=== PATIENT | male | born 1955 ===

== ENCOUNTER 2020-12-02 14:38 | Emergency (ER) | payer OTHER ==
[~2020-12-02] VITALS: Ht 177.8 cm; Wt 77.1 kg
[~2020-12-02 14:38] MED LIST: Norco 5-325 Ta1 EACH PO
[2020-12-02 16:02] LABS: BASOPHILS ABSOLUTE AUTO 0.06 K/mm3 (0.00-0.23); BASOPHILS PERCENT AUTO 1 % (0-2); EOSINOPHILS ABSOLUTE AUTO 0.28 K/mm3 (0.00-0.68); EOSINOPHILS PERCENT AUTO 4 % (0-6); Hemoglobin 16.1 g/dL (13.5-17.5); IMMATURE GRAN ABSOLUTE AUTO 0.04 K/mm3 (0.00-0.10); IMMATURE GRAN PERCENT AUTO 1 % (0-1); LYMPHOCYTES ABSOLUTE AUTO 2.48 K/mm3 (0.84-5.20); LYMPHOCYTES PERCENT AUTO 32 % (21-46); MONOCYTES ABSOLUTE AUTO 0.71 K/mm3 (0.16-1.47); MONOCYTES PERCENT AUTO 9 % (4-13); Mean Corpuscular HGB Conc 33.5 g/dL (31.5-36.5); Mean Corpuscular Volume 89 fL (80-100); NEUTROPHILS ABSOLUTE AUTO 4.18 K/mm3 (1.96-9.15); NEUTROPHILS PERCENT AUTO 54 % (41-73); Platelet Count 403 K/mm3 (150-400); RDW Coefficient Variation 13.2 % (11.7-14.2); RDW Standard Deviation 42.8 fL (35.1-46.3); Red Blood Cell Count 5.37 M/mm3 (4.30-5.90); White Blood Cell Count 7.75 K/mm3 (4.00-11.30)
[2020-12-02 16:19] LABS: Alanine Aminotransfer (ALT/SGP 36 U/L (12-78); Albumin, Blood 3.5 g/dL (3.4-5.0); Alk Phos 95 U/L (50-136); Anion Gap 5 mmol/L (6-16); Aspartate Aminotrans (AST/SGOT 18 U/L (12-37); Bilirubin, Total 0.2 mg/dL (0.1-1.0); Blood Urea Nitrogen 11 mg/dL (8-24); Bun/Creatinine Ratio 14.9 (12.0-20.0); CO2, Blood 26 mmol/L (21-32); Calcium, Blood 8.9 mg/dL (8.5-10.1); Chloride, Blood 110 mmol/L (98-108); Creatinine, Blood 0.74 mg/dL (0.60-1.20); Globulin, Blood 3.5 g/dL (2.2-4.0); Glomerular Filtration Rate >60 (60-); Glucose, Blood 97 mg/dL (70-99); Sodium, Blood 141 mmol/L (136-145); Troponin I <0.015 ng/mL (0.000-0.040)
== END 2020-12-02 17:35 | disposition home or self-care (01) ==
LOC: ER 14:38
PROVIDERS: Physician Assistant
DX: R42 Dizziness and giddiness (principal); F17.210 Nicotine dependence, cigarettes, uncomplicated
CPT/HCPCS: 80053; 84484; 85025; 93005; 93010; 99285-25

== ENCOUNTER 2021-01-08 08:57 | Emergency (ER) | payer OTHER ==
[~2021-01-08] VITALS: Ht 177.8 cm; Wt 77.1 kg
[2021-01-08 10:15] LABS: BASOPHILS ABSOLUTE AUTO 0.05 K/mm3 (0.00-0.23); BASOPHILS PERCENT AUTO 1 % (0-2); EOSINOPHILS ABSOLUTE AUTO 0.19 K/mm3 (0.00-0.68); EOSINOPHILS PERCENT AUTO 2 % (0-6); Hematocrit 46.9 % (37.0-53.0); Hemoglobin 15.9 g/dL (13.5-17.5); IMMATURE GRAN ABSOLUTE AUTO 0.04 K/mm3 (0.00-0.10); IMMATURE GRAN PERCENT AUTO 0 % (0-1); LYMPHOCYTES PERCENT AUTO 16 % (21-46); MONOCYTES ABSOLUTE AUTO 1.03 K/mm3 (0.16-1.47); MONOCYTES PERCENT AUTO 10 % (4-13); Mean Corpuscular HGB 30.1 pg (26.0-34.0); Mean Corpuscular HGB Conc 33.9 g/dL (31.5-36.5); Mean Corpuscular Volume 89 fL (80-100); Mean Platelet Volume 9.7 fL (9.1-12.4); NEUTROPHILS ABSOLUTE AUTO 7.38 K/mm3 (1.96-9.15); NEUTROPHILS PERCENT AUTO 71 % (41-73); Platelet Count 461 K/mm3 (150-400); RDW Coefficient Variation 13.5 % (11.7-14.2); RDW Standard Deviation 44.4 fL (35.1-46.3); Red Blood Cell Count 5.28 M/mm3 (4.30-5.90); White Blood Cell Count 10.39 K/mm3 (4.00-11.30)
[2021-01-08 10:34] LABS: Alanine Aminotransfer (ALT/SGP 31 U/L (12-78); Albumin, Blood 3.5 g/dL (3.4-5.0); Albumin/Globulin Ratio 0.9 (0.8-1.8); Alk Phos 102 U/L (50-136); Anion Gap 1 mmol/L (6-16); Aspartate Aminotrans (AST/SGOT 43 U/L (12-37); Bilirubin, Total 0.6 mg/dL (0.1-1.0); Blood Urea Nitrogen 19 mg/dL (8-24); Bun/Creatinine Ratio 26.1 (12.0-20.0); CO2, Blood 29 mmol/L (21-32); Chloride, Blood 109 mmol/L (98-108); Creatinine, Blood 0.73 mg/dL (0.60-1.20); Glomerular Filtration Rate >60 (60-); Glucose, Blood 82 mg/dL (70-99); Potassium, Blood 5.2 mmol/L (3.5-5.5); Sodium, Blood 139 mmol/L (136-145); Total Protein, Blood 7.5 g/dL (6.4-8.2)
[2021-01-08 12:18] LABS: Source, Urine Clean Catch
[2021-01-08 12:32] LABS: Bilirubin, Urine Neg (Neg); Blood, Urine 1+ (Neg); Glucose Qualitative, Urine Neg (Neg); Ketones, Urine Neg (Neg); Leukocyte Esterase, Urine Neg (Neg); Nitrite, Urine Neg (Neg); Protein, Urine Neg (Neg); Specific Gravity, Urine 1.015 (1.003-1.022); Urobilinogen, Urine NORM (Normal)
[2021-01-08] MEDS ORDERED: GABA300 PO (12:38)
[2021-01-08] MEDS ORDERED: LIDO700A20 TOP (12:38)
[2021-01-08 13:00] LABS: Appearance, Urine Clear (Clear); Color, Urine Yellow (P-Yellow)
[2021-01-08 13:02] LABS: Bacteria Not Seen /hpf; Red Blood Cells, Urine 0-2 /hpf (0-2); Squamous Epithelial Cells Not Seen /hpf (Few); White Blood Cells, Urine 0-2 /hpf (0-5)
== END 2021-01-08 13:30 | disposition home or self-care (01) ==
LOC: ER 08:57
PROVIDERS: Student in an Organized Health Care Education/Training Program
DX: K52.9 Noninfective gastroenteritis and colitis, unspecified (principal); F17.210 Nicotine dependence, cigarettes, uncomplicated
CPT/HCPCS: 36415; 74177; 80053; 81001; 83605; 83690; 85025; 96374-59; 99284-25; J2270; J7120; Q9967

== ENCOUNTER → 2021-01-28 | Outpatient (CLI) | payer OTHER ==
[~2021-01-28] MED LIST changes: +GABA300 PO; +LIDO700A20 TOP
== END | disposition home or self-care (01) ==
LOC: LAB 14:30 → LAB SHORT 14:30
DX: M25.521 Pain in right elbow (principal)
CPT/HCPCS: 87070; 87077; 87147; 87186; 87205

== ENCOUNTER 2021-01-29 12:01 | Inpatient (IN) | payer OTHER ==
[~2021-01-29] VITALS: Ht 177.8 cm; Wt 81.3 kg
[2021-01-29 13:38] LABS: BASOPHILS ABSOLUTE AUTO 0.04 K/mm3 (0.00-0.23); BASOPHILS PERCENT AUTO 0 % (0-2); EOSINOPHILS ABSOLUTE AUTO 0.15 K/mm3 (0.00-0.68); EOSINOPHILS PERCENT AUTO 1 % (0-6); Hematocrit 44.9 % (37.0-53.0); Hemoglobin 15.1 g/dL (13.5-17.5); IMMATURE GRAN ABSOLUTE AUTO 0.11 K/mm3 (0.00-0.10); IMMATURE GRAN PERCENT AUTO 1 % (0-1); LYMPHOCYTES ABSOLUTE AUTO 1.21 K/mm3 (0.84-5.20); LYMPHOCYTES PERCENT AUTO 7 % (21-46); MONOCYTES ABSOLUTE AUTO 2.43 K/mm3 (0.16-1.47); MONOCYTES PERCENT AUTO 13 % (4-13); Mean Corpuscular HGB 30.1 pg (26.0-34.0); Mean Corpuscular HGB Conc 33.6 g/dL (31.5-36.5); Mean Corpuscular Volume 89 fL (80-100); Mean Platelet Volume 9.6 fL (9.1-12.4); NEUTROPHILS ABSOLUTE AUTO 14.76 K/mm3 (1.96-9.15); NEUTROPHILS PERCENT AUTO 79 % (41-73); Platelet Count 457 K/mm3 (150-400); RDW Coefficient Variation 13.3 % (11.7-14.2); RDW Standard Deviation 43.6 fL (35.1-46.3); Red Blood Cell Count 5.02 M/mm3 (4.30-5.90)
[2021-01-29 13:56] LABS: Alanine Aminotransfer (ALT/SGP 31 U/L (12-78); Albumin, Blood 2.6 g/dL (3.4-5.0); Albumin/Globulin Ratio 0.6 (0.8-1.8); Alk Phos 117 U/L (50-136); Anion Gap 2 mmol/L (6-16); Aspartate Aminotrans (AST/SGOT 29 U/L (12-37); Bilirubin, Total 0.8 mg/dL (0.1-1.0); Blood Urea Nitrogen 14 mg/dL (8-24); Bun/Creatinine Ratio 15.7 (12.0-20.0); CO2, Blood 31 mmol/L (21-32); Calcium, Blood 8.8 mg/dL (8.5-10.1); Chloride, Blood 105 mmol/L (98-108); Creatinine, Blood 0.89 mg/dL (0.60-1.20); Globulin, Blood 4.7 g/dL (2.2-4.0); Glomerular Filtration Rate >60 (60-); Glucose, Blood 101 mg/dL (70-99); Potassium, Blood 3.7 mmol/L (3.5-5.5); Sodium, Blood 138 mmol/L (136-145); Total Protein, Blood 7.3 g/dL (6.4-8.2)
[2021-01-29 18:24] LABS: SARS-Cov-2 (COVID-19) PCR, MMC NEGATIVE (NEGATIVE)
--- NOTE | 2021-01-29 18:31 | NUR ---
SHIFT SUMMARY PATIENT ADMITTED FROM ER AT 1735. PATIENT HAD VANCO RUNNING. PATIENT SETTLED INTO ROOM. ADMIT COMPLETE. PATIENT MEDICATED FOR PAIN IN ER BEFORE ADMISSION TO FLOOR. PATIENT DENIES NAUSEA AND SHORTNESS OF BREATH. PATIENT IS INDEPENDENT IN ROOM. URINE SAMPLE COLLECTED. DINNER TRAY REQUESTED. PATIENT TO BE NPO AT MIDNIGHT. CONSULT TO DR. CAMPO CALLED IN, LEFT MESSAGE ON ANSWERING SERVICE. PATIENT IS PLEASANT AND COOPERATIVE WITH CARE.
[2021-01-29 18:56] LABS: U Amphetamine Screen DETECTED; U Barbituate Screen Not Detected; U Benzodiazapine Screen Not Detected; U Buprenorphine Screen Not Detected; U Cannabinoids Screen DETECTED; U Cocaine Screen Not Detected; U Methadone Screen Not Detected; U Methamphetamine Screen DETECTED; U Opiates Screen DETECTED; U Oxycodone Screen Not Detected; U Phencyclidine Screen Not Detected; U Propoxyphene Screen Not Detected
[2021-01-30 05:05] LABS: BASOPHILS ABSOLUTE AUTO 0.04 K/mm3 (0.00-0.23); BASOPHILS PERCENT AUTO 0 % (0-2); EOSINOPHILS ABSOLUTE AUTO 0.26 K/mm3 (0.00-0.68); EOSINOPHILS PERCENT AUTO 2 % (0-6); Hematocrit 36.4 % (37.0-53.0); Hemoglobin 12.5 g/dL (13.5-17.5); IMMATURE GRAN ABSOLUTE AUTO 0.07 K/mm3 (0.00-0.10); IMMATURE GRAN PERCENT AUTO 1 % (0-1); LYMPHOCYTES ABSOLUTE AUTO 1.66 K/mm3 (0.84-5.20); LYMPHOCYTES PERCENT AUTO 11 % (21-46); MONOCYTES ABSOLUTE AUTO 1.92 K/mm3 (0.16-1.47); MONOCYTES PERCENT AUTO 13 % (4-13); Mean Corpuscular HGB 30.7 pg (26.0-34.0); Mean Corpuscular HGB Conc 34.3 g/dL (31.5-36.5); Mean Corpuscular Volume 89 fL (80-100); Mean Platelet Volume 9.7 fL (9.1-12.4); NEUTROPHILS ABSOLUTE AUTO 10.55 K/mm3 (1.96-9.15); NEUTROPHILS PERCENT AUTO 73 % (41-73); Platelet Count 401 K/mm3 (150-400); RDW Coefficient Variation 13.2 % (11.7-14.2); RDW Standard Deviation 43.4 fL (35.1-46.3); Red Blood Cell Count 4.07 M/mm3 (4.30-5.90)
[2021-01-30 05:44] LABS: Alanine Aminotransfer (ALT/SGP 23 U/L (12-78); Albumin, Blood 2.1 g/dL (3.4-5.0); Albumin/Globulin Ratio 0.6 (0.8-1.8); Alk Phos 95 U/L (50-136); Anion Gap 4 mmol/L (6-16); Aspartate Aminotrans (AST/SGOT 20 U/L (12-37); Bilirubin, Total 0.5 mg/dL (0.1-1.0); Blood Urea Nitrogen 14 mg/dL (8-24); Bun/Creatinine Ratio 18.3 (12.0-20.0); CO2, Blood 27 mmol/L (21-32); Calcium, Blood 8.4 mg/dL (8.5-10.1); Chloride, Blood 105 mmol/L (98-108); Creatinine, Blood 0.76 mg/dL (0.60-1.20); Globulin, Blood 3.7 g/dL (2.2-4.0); Glomerular Filtration Rate >60 (60-); Glucose, Blood 95 mg/dL (70-99); Magnesium, Blood 2.2 mg/dL (1.6-2.4); Potassium, Blood 3.3 mmol/L (3.5-5.5); Sodium, Blood 136 mmol/L (136-145); Total Protein, Blood 5.8 g/dL (6.4-8.2)
--- NOTE | 2021-01-30 06:45 | NUR ---
PATIENT IS AWAKE LYING IN BED. CHANGED PATIENT'S DRESSING TO R ELBOW, KERLIX AND GAUZE, CLEANSED W NS. NO PAIN EXPRESSED AT THIS TIME. LARGE BROWN/YELLOW DRAINAGE FROM DRESSING CHANGE. NO ACUTE CHANGES OVERNIGHT. BED IN LOW POSITION AND CALL LIGHT WITHIN REACH.
--- NOTE | 2021-01-30 13:57 | NUR ---
1345 ASSUMED CARE. PT IS TEARFUL . DENIES PAIN OR NAUSEA STATES HE DOES NOT KNOW WHY HE IS UPSET. RIGHT ARM ELEVATED ON PILLOW WIGGLES FINGERS CAP REFILL WNL . OFFERS NO COMPLAINT
--- NOTE | 2021-01-30 16:11 | NUR ---
SHIFT SUMMARY PATIENT MEDICATED FOR PAIN X1. PATIENT DENIES NAUSEA AND SHORTNESS OF BREATH. PATIENT SHOWERED THIS MORNING FOR PROCEDURE. REPLACED DRESSING. PATIENT HAS BEEN NPO SINCE MIDNIGHT FOR PROCEDURE. PATIENT WAS TAKEN AT 1100 FOR PROCEDURE. PATIENT RETURNED TO FLOOR AT 1430. THERE IS A NEW DRESSING, CLEAN AND INTACT. PATIENT REPORTS NO PAIN. VITAL SIGNS STABLE. PATIENT ON REGULAR DIET NOW, AND EATING AND DRINKING WELL. PATIENT IS INDEPENDENT TO BATHROOM. PATIENT IS PLEASANT AND COOPERATIVE WITH CARE.
[2021-01-30 16:41] LABS: Anion Gap 5 mmol/L (6-16); Blood Urea Nitrogen 12 mg/dL (8-24); CO2, Blood 24 mmol/L (21-32); Calcium, Blood 8.5 mg/dL (8.5-10.1); Chloride, Blood 106 mmol/L (98-108); Creatinine, Blood 0.67 mg/dL (0.60-1.20); Glomerular Filtration Rate >60 (60-); Glucose, Blood 100 mg/dL (70-99); Potassium, Blood 4.1 mmol/L (3.5-5.5); Sodium, Blood 135 mmol/L (136-145)
[2021-01-31 04:30] LABS: BASOPHILS ABSOLUTE AUTO 0.01 K/mm3 (0.00-0.23); BASOPHILS PERCENT AUTO 0 % (0-2); EOSINOPHILS PERCENT AUTO 0 % (0-6); Hematocrit 36.1 % (37.0-53.0); Hemoglobin 12.2 g/dL (13.5-17.5); IMMATURE GRAN ABSOLUTE AUTO 0.08 K/mm3 (0.00-0.10); IMMATURE GRAN PERCENT AUTO 1 % (0-1); LYMPHOCYTES ABSOLUTE AUTO 0.81 K/mm3 (0.84-5.20); LYMPHOCYTES PERCENT AUTO 6 % (21-46); MONOCYTES ABSOLUTE AUTO 1.36 K/mm3 (0.16-1.47); MONOCYTES PERCENT AUTO 10 % (4-13); Mean Corpuscular HGB Conc 33.8 g/dL (31.5-36.5); Mean Corpuscular Volume 89 fL (80-100); Mean Platelet Volume 9.3 fL (9.1-12.4); NEUTROPHILS ABSOLUTE AUTO 11.45 K/mm3 (1.96-9.15); NEUTROPHILS PERCENT AUTO 84 % (41-73); Platelet Count 455 K/mm3 (150-400); RDW Coefficient Variation 12.8 % (11.7-14.2); RDW Standard Deviation 42.2 fL (35.1-46.3); Red Blood Cell Count 4.06 M/mm3 (4.30-5.90); White Blood Cell Count 13.71 K/mm3 (4.00-11.30)
[2021-01-31 04:47] LABS: Vancomycin, Trough 7.1 ug/mL (5.0-10.0)
[2021-01-31 04:50] LABS: Anion Gap 4 mmol/L (6-16); Blood Urea Nitrogen 13 mg/dL (8-24); Bun/Creatinine Ratio 21.6 (12.0-20.0); CO2, Blood 27 mmol/L (21-32); Calcium, Blood 8.7 mg/dL (8.5-10.1); Chloride, Blood 107 mmol/L (98-108); Glomerular Filtration Rate >60 (60-); Glucose, Blood 145 mg/dL (70-99); Sodium, Blood 138 mmol/L (136-145)
--- NOTE | 2021-01-31 06:42 | NUR ---
SHIFT SUMMARY PT A&OX4. INDEPENDENT IN ROOM. SCHEDULED ABX FOR OSTEOMYELITIS ADMINISTERED PER EMAR.PT HAS IV ON LEFT AC. ADLS PROVIDED, SAFETY MEASURES IN PLACE. WILL CONTINUE TO MONITOR.
--- NOTE | 2021-01-31 18:25 | NUR ---
SHIFT SUMMARY PT INDEPENDENT IN TO BATHROOM. DRESSING CHANGED TO R ELBOW WITH MODERATE AMOUNT OF SEROSANGUINESS DRAINAGE. HAS HAD BREAKTHROUGH DRAINAGE SO DRESSING REINFORCED. NO FEVERS TODAY. EATING WELL.
[2021-02-01 05:17] LABS: BASOPHILS ABSOLUTE AUTO 0.06 K/mm3 (0.00-0.23); BASOPHILS PERCENT AUTO 1 % (0-2); EOSINOPHILS ABSOLUTE AUTO 0.16 K/mm3 (0.00-0.68); EOSINOPHILS PERCENT AUTO 1 % (0-6); Hematocrit 33.8 % (37.0-53.0); Hemoglobin 11.1 g/dL (13.5-17.5); IMMATURE GRAN PERCENT AUTO 1 % (0-1); LYMPHOCYTES ABSOLUTE AUTO 2.72 K/mm3 (0.84-5.20); LYMPHOCYTES PERCENT AUTO 23 % (21-46); MONOCYTES ABSOLUTE AUTO 1.36 K/mm3 (0.16-1.47); MONOCYTES PERCENT AUTO 11 % (4-13); Mean Corpuscular HGB 29.8 pg (26.0-34.0); Mean Corpuscular HGB Conc 32.8 g/dL (31.5-36.5); Mean Corpuscular Volume 91 fL (80-100); Mean Platelet Volume 9.8 fL (9.1-12.4); NEUTROPHILS ABSOLUTE AUTO 7.64 K/mm3 (1.96-9.15); NEUTROPHILS PERCENT AUTO 64 % (41-73); Platelet Count 495 K/mm3 (150-400); RDW Coefficient Variation 13.2 % (11.7-14.2); RDW Standard Deviation 43.8 fL (35.1-46.3); Red Blood Cell Count 3.73 M/mm3 (4.30-5.90); White Blood Cell Count 12.04 K/mm3 (4.00-11.30)
[2021-02-01 05:52] LABS: Vancomycin, Trough 16.2 ug/mL (5.0-10.0)
[2021-02-01 06:01] LABS: Anion Gap 6 mmol/L (6-16); Blood Urea Nitrogen 15 mg/dL (8-24); Bun/Creatinine Ratio 22.4 (12.0-20.0); CO2, Blood 26 mmol/L (21-32); Calcium, Blood 8.4 mg/dL (8.5-10.1); Chloride, Blood 109 mmol/L (98-108); Creatinine, Blood 0.67 mg/dL (0.60-1.20); Glomerular Filtration Rate >60 (60-); Glucose, Blood 91 mg/dL (70-99); Potassium, Blood 3.8 mmol/L (3.5-5.5); Sodium, Blood 141 mmol/L (136-145)
--- NOTE | 2021-02-01 06:25 | NUR ---
SHIFT SUMMARY PT IS AA&OX4, RR EVEN AND UNLABORED. PT NPO AFTER MIDNIGHT DUE TO UPCOMING IRRIGATION AND DEBRIDEMENT OF LEFT ELBOW OSTEOMYELITIS THIS AM. IV ABX ADMINISTERED PER EMAR. PT C/0 PAIN IN LEFT ARM, PRN PAIN MED ADMINISTERED WITH GOOD EFFECT. SAFETY MEASURES IN PLACE. WILL CONTINUE TO MONITOR.
--- NOTE | 2021-02-01 09:57 | NUR ---
DRESSING CHANGE DONE ON RIGHT ELBOW WOUND. OLD DRESSING FALLING OFF WAS REMOVED AND REPLACED WITH XEROFORM, ABD, KERLIX, AND SECURED WITH [place] TAPE.
--- NOTE | 2021-02-01 18:03 | NUR ---
PT DRESSING ON RIGHT ELBOW WAS CHANGED THIS AM DUE TO DRESSING SLIDING DOWN ELBOW AND EXCESSIVE DRAINAGE. PT SHOWERED THIS AM BEFORE GOING TO SURGERY. TOLERATED WELL. PT WENT TO SURGERY FOR I AND D AND WOUND VAC PLACEMENT ON RIGHT ELBOW. UPON RETURN FROM SURGERY, PT AMBULATED TO RESTROOM INDEPENDENTLY. PT IS NOW SITTING AT EDGE OF BED EATING DINNER.
--- NOTE | 2021-02-02 04:30 | NUR ---
SHIFT SUMMARY PT AA&OX3. ABLE TO MAKE NEEDS KNOWN. DENIES PAIN OR DISCOMFORT. PT HAS A WOUND VAC DRAINING FREELY. MEDS ADMINISTERED PER EMAR. ADLS PROVIDED. SAFETY MEASURES IN PLACE. WILL CONTINUE TO MONITOR.
[2021-02-02 04:46] LABS: BASOPHILS ABSOLUTE AUTO 0.03 K/mm3 (0.00-0.23); BASOPHILS PERCENT AUTO 0 % (0-2); EOSINOPHILS PERCENT AUTO 0 % (0-6); Hematocrit 35.3 % (37.0-53.0); IMMATURE GRAN ABSOLUTE AUTO 0.13 K/mm3 (0.00-0.10); IMMATURE GRAN PERCENT AUTO 1 % (0-1); LYMPHOCYTES ABSOLUTE AUTO 0.79 K/mm3 (0.84-5.20); LYMPHOCYTES PERCENT AUTO 6 % (21-46); MONOCYTES ABSOLUTE AUTO 0.86 K/mm3 (0.16-1.47); MONOCYTES PERCENT AUTO 6 % (4-13); Mean Corpuscular HGB 30.4 pg (26.0-34.0); Mean Corpuscular Volume 89 fL (80-100); Mean Platelet Volume 9.3 fL (9.1-12.4); NEUTROPHILS PERCENT AUTO 87 % (41-73); Platelet Count 532 K/mm3 (150-400); RDW Coefficient Variation 12.7 % (11.7-14.2); RDW Standard Deviation 42.2 fL (35.1-46.3); Red Blood Cell Count 3.95 M/mm3 (4.30-5.90); White Blood Cell Count 14.41 K/mm3 (4.00-11.30)
[2021-02-02 04:59] LABS: Anion Gap 4 mmol/L (6-16); Blood Urea Nitrogen 16 mg/dL (8-24); Bun/Creatinine Ratio 22.5 (12.0-20.0); CO2, Blood 27 mmol/L (21-32); Calcium, Blood 8.4 mg/dL (8.5-10.1); Chloride, Blood 106 mmol/L (98-108); Creatinine, Blood 0.71 mg/dL (0.60-1.20); Glomerular Filtration Rate >60 (60-); Glucose, Blood 145 mg/dL (70-99); Potassium, Blood 4.4 mmol/L (3.5-5.5); Sodium, Blood 137 mmol/L (136-145)
[2021-02-02 05:26] LABS: Vancomycin, Trough 21.9 ug/mL (5.0-10.0)
[2021-02-02 17:13] LABS: C-REACTIVE PROTEIN, EXT RANGE 1.88 mg/dL (0.000-0.300)
--- NOTE | 2021-02-02 18:37 | NUR ---
PATIENT IS ALERT AND ORIENTED AND COOPERATIVE WITH CARE. MEDICATED FOR RIGHT ELBOW PAIN PER EMAR. DR. CAMPO CONSULTED ON THE PATIENT'S CASE TODAY. WORKED WITH PT THIS AFTERNOON. WILL CONTINUE TO MONITOR
--- NOTE | 2021-02-03 04:32 | NUR ---
SHIFT SUMMARY PT IS A&OX3. NO ACUTE CHANGES ON THIS SHIFT. C/O PAIN ON RT ELBOW. PRN PAIN MEDS ADMINISTERED WITH GOOD EFFECTS. WOUND VAC IS DRAINING WELL. ADLS PROVIDED. SAFETY MEASURES IN PLACE. WILL CONTINUE TO MONITOR.
[2021-02-03 04:54] LABS: BASOPHILS ABSOLUTE AUTO 0.09 K/mm3 (0.00-0.23); BASOPHILS PERCENT AUTO 1 % (0-2); EOSINOPHILS ABSOLUTE AUTO 0.15 K/mm3 (0.00-0.68); EOSINOPHILS PERCENT AUTO 1 % (0-6); Hematocrit 36.5 % (37.0-53.0); Hemoglobin 12.2 g/dL (13.5-17.5); IMMATURE GRAN ABSOLUTE AUTO 0.36 K/mm3 (0.00-0.10); IMMATURE GRAN PERCENT AUTO 2 % (0-1); LYMPHOCYTES ABSOLUTE AUTO 3.64 K/mm3 (0.84-5.20); LYMPHOCYTES PERCENT AUTO 20 % (21-46); MONOCYTES ABSOLUTE AUTO 1.97 K/mm3 (0.16-1.47); MONOCYTES PERCENT AUTO 11 % (4-13); Mean Corpuscular HGB 29.7 pg (26.0-34.0); Mean Corpuscular HGB Conc 33.4 g/dL (31.5-36.5); Mean Corpuscular Volume 89 fL (80-100); Mean Platelet Volume 9.1 fL (9.1-12.4); NEUTROPHILS ABSOLUTE AUTO 12.41 K/mm3 (1.96-9.15); NEUTROPHILS PERCENT AUTO 67 % (41-73); Platelet Count 610 K/mm3 (150-400); RDW Coefficient Variation 13.1 % (11.7-14.2); RDW Standard Deviation 42.5 fL (35.1-46.3); Red Blood Cell Count 4.11 M/mm3 (4.30-5.90); White Blood Cell Count 18.62 K/mm3 (4.00-11.30)
[2021-02-03 05:13] LABS: Anion Gap 2 mmol/L (6-16); Blood Urea Nitrogen 16 mg/dL (8-24); Bun/Creatinine Ratio 21.6 (12.0-20.0); CO2, Blood 31 mmol/L (21-32); Calcium, Blood 8.5 mg/dL (8.5-10.1); Chloride, Blood 107 mmol/L (98-108); Creatinine, Blood 0.74 mg/dL (0.60-1.20); Glomerular Filtration Rate >60 (60-); Glucose, Blood 92 mg/dL (70-99); Potassium, Blood 3.9 mmol/L (3.5-5.5); Sodium, Blood 140 mmol/L (136-145)
[2021-02-03 08:09] LABS: HIV SCREEN 4TH GENERATION WRFX Non Reactive (Non Reactive)
--- NOTE | 2021-02-03 17:02 | NUR ---
PATIENT IS ALERT AND ORIENTED AND COOPERATIVE WITH CARE. C/O RIGHT ELBOW PAIN, MEDICATED PER EMAR. PLAN IS FOR A PICC LINE TO BE PLACED TOMORROW BY AN ANGELINA RN. PATIENT IS EAGER TO GO HOME. HOME WOUND CARE SUPPLIES ARE IN THE PATIENT'S ROOM. WILL CONTINUE TO MONITOR
[2021-02-04 04:55] LABS: BASOPHILS PERCENT AUTO 1 % (0-2); EOSINOPHILS ABSOLUTE AUTO 0.33 K/mm3 (0.00-0.68); EOSINOPHILS PERCENT AUTO 2 % (0-6); Hematocrit 38.6 % (37.0-53.0); IMMATURE GRAN ABSOLUTE AUTO 1.08 K/mm3 (0.00-0.10); IMMATURE GRAN PERCENT AUTO 6 % (0-1); LYMPHOCYTES ABSOLUTE AUTO 3.89 K/mm3 (0.84-5.20); LYMPHOCYTES PERCENT AUTO 23 % (21-46); MONOCYTES ABSOLUTE AUTO 1.62 K/mm3 (0.16-1.47); MONOCYTES PERCENT AUTO 10 % (4-13); Mean Corpuscular HGB 30.3 pg (26.0-34.0); Mean Corpuscular HGB Conc 33.7 g/dL (31.5-36.5); Mean Corpuscular Volume 90 fL (80-100); Mean Platelet Volume 9.3 fL (9.1-12.4); NEUTROPHILS ABSOLUTE AUTO 9.81 K/mm3 (1.96-9.15); NEUTROPHILS PERCENT AUTO 58 % (41-73); Platelet Count 649 K/mm3 (150-400); RDW Coefficient Variation 13.2 % (11.7-14.2); RDW Standard Deviation 43.6 fL (35.1-46.3); Red Blood Cell Count 4.29 M/mm3 (4.30-5.90); White Blood Cell Count 16.93 K/mm3 (4.00-11.30)
[2021-02-04 05:09] LABS: Anion Gap 3 mmol/L (6-16); Blood Urea Nitrogen 21 mg/dL (8-24); Bun/Creatinine Ratio 27.5 (12.0-20.0); CO2, Blood 31 mmol/L (21-32); Calcium, Blood 8.9 mg/dL (8.5-10.1); Chloride, Blood 104 mmol/L (98-108); Creatinine, Blood 0.76 mg/dL (0.60-1.20); Glomerular Filtration Rate >60 (60-); Glucose, Blood 99 mg/dL (70-99); Potassium, Blood 4.2 mmol/L (3.5-5.5); Sodium, Blood 138 mmol/L (136-145)
[2021-02-04 05:11] LABS: BAND PERCENT MAN 2 % (0-8); BASOPHILS PERCENT MAN 0 % (0-2); EOSINOPHILS ABSOLUTE MAN 0.33 K/mm3 (0.00-0.68); EOSINOPHILS PERCENT MAN 2 % (0-6); LYMPHOCYTES ABSOLUTE MAN 4.06 K/mm3 (0.84-5.20); LYMPHOCYTES PERCENT MAN 24 % (21-46); METAMYELOCYTE ABSOLUTE MAN 0.16 K/mm3 (0.00-0.00); METAMYELOCYTE PERCENT MAN 1 % (0-0); MONOCYTES ABSOLUTE MAN 1.86 K/mm3 (0.16-1.47); MONOCYTES PERCENT MAN 11 % (4-13); MYELOCYTE ABSOLUTE MAN 0.16 K/mm3 (0.00-0.00); MYELOCYTE PERCENT MAN 1 % (0-0); NEUTROPHILS ABSOLUTE MAN 10.32 K/mm3 (1.96-9.15); SEG NEUTROPHILS PERCENT MAN 59 % (41-73); TOTAL CELLS COUNTED 100
--- NOTE | 2021-02-04 05:13 | NUR ---
SHIFT SUMMARY ADMITTED FOR ACUTE OSTEOMYELITIS. FULL CODE. ISO FOR MRSA IN WOUND. RT ELBOW HAD I&D'S X2, WOUND VAC IN PLACE. PICC LINE TO BE PLACED TODAY FOR 6 WEEKS ANTIB RX. HE WILL DC HOME. IV ANTIB RX ARE SCHEDULED. HX OF DRUG ABUSE.
[2021-02-04] MEDS ORDERED: JUVEN PACKET1 EAC3 PO (13:40)
[2021-02-04] MEDS ORDERED: NICODERM CQ1 EA11 TOP (13:41)
[2021-02-04] MEDS ORDERED: Norco 5-325 Ta1 EACH PO (13:41)
[2021-02-04] MEDS ORDERED: LACT PO (13:41)
[2021-02-04] MEDS ORDERED: CUBICIN RF500 M1 IV (13:43)
--- NOTE | 2021-02-04 18:18 | NUR ---
PATIENT D/C'D TO HOME WITH HOME HEALTH. PORTABLE WOUND VAC SENT HOME. DC INSTRUCTIONS AND EDUCATION DISCUSSED WITH PATIENT AND COPY PROVIDED. PATIENT DENIES ANY FURHTER QUESTIONS OR CONCERNS. WILL FOLLOW UP WITH WOUND CLININC AND INFUSION CLININC. PCP APPOINTMENT SCHEDULED FOR TOMORROW AM. RX MEDICATIONS FAXED TO [facility] AND HARD SCRIPT FOR NORCO GIVEN TO PATIENT.
== END 2021-02-04 18:15 | disposition home or self-care (01) | DRG 854 ==
LOC: ER 12:01 → MEDS 16:11
PROVIDERS: Family Medicine; Internal Medicine Infectious Disease; Nurse Practitioner Acute Care; Orthopaedic Surgery; Physician Assistant; ADMIT Hospitalist
PROC: 0PBK0ZZ Excision of Right Ulna, Open Approach (ICD-10-PCS; principal; 2021-01-30 12:30)
PROC: 0PBK0ZZ Excision of Right Ulna, Open Approach (ICD-10-PCS; 2021-02-01)
PROC: 02HV33Z Insertion of Infusion Device into Superior Vena Cava, Percutaneous Approach (ICD-10-PCS; 2021-02-04)
DX: A41.02 Sepsis due to Methicillin resistant Staphylococcus aureus (principal); L03.113 Cellulitis of right upper limb; L02.413 Cutaneous abscess of right upper limb; M86.18 Other acute osteomyelitis, other site; R53.82 Chronic fatigue, unspecified; E87.6 Hypokalemia; M71.121 Other infective bursitis, right elbow; F11.10 Opioid abuse, uncomplicated; F15.10 Other stimulant abuse, uncomplicated; F12.10 Cannabis abuse, uncomplicated; F17.210 Nicotine dependence, cigarettes, uncomplicated; Z98.890 Other specified postprocedural states
CPT/HCPCS: 36415; 73201; 80048; 80053; 80202; 82550; 83605; 83735; 85025; 85651; 86140; 87040; 87070; 87075; 87077; 87147; 87186; 87205; 87389; 90471; 90714; 96365-59; 96367-59; 96375-59; 97110; 97161; 99285-25; A9270; J0696; J0878; J1100; J1650; J1885; J2250; J2270; J2370; J2405; J2704; J3010; J3370; J3480; J7030; J7050; J7120; Q9967; U0004

== ENCOUNTER 2021-02-05 08:05 | Emergency (ER) | payer OTHER ==
[~2021-02-05] VITALS: Ht 177.8 cm; Wt 79.4 kg
[~2021-02-05 08:05] MED LIST changes: +CUBICIN RF500 M1 IV; +JUVEN PACKET1 EAC3 PO; +LACT PO; +NICODERM CQ1 EA11 TOP
== END 2021-02-05 09:26 | disposition home or self-care (01) ==
LOC: ER 08:05
DX: Z48.01 Encounter for change or removal of surgical wound dressing (principal); M71.9 Bursopathy, unspecified; F17.210 Nicotine dependence, cigarettes, uncomplicated; Z79.899 Other long term (current) drug therapy
CPT/HCPCS: 99283

== ENCOUNTER 2021-02-08 10:38 | Emergency (ER) | payer OTHER ==
[~2021-02-08] VITALS: Ht 238.8 cm; Wt 80.7 kg
--- NOTE | 2021-02-08 12:24 | NUR ---
Called to ER to change a wvac that was leaking. Pt states he accidently melted a spot on the tubing that connects the vacuum collection canister to the dressing on his right elbow. His old dressing to his right elbow is loose and the skin underneath the dressing is pale in color and moist. Stitches intact to right elbow. Cleaned wound area with saline and sterile gauze. Skin prep applied. New wvac appliance applied and connected to a new collection canister and tubing. Continuous suction at 120 mmhg obtained. No air leaks noted. Pt has an appointment on Tuesday with the wound clinic for follow up. Pt reports that he has extra dressing foam and drape material but doesn't have an extra collection canistrer. Encouraged him to talk with staff in the wound clinic this week to see if he can obtain some extra collection canisters.
== END 2021-02-08 12:00 | disposition home or self-care (01) ==
LOC: ER 10:38
DX: Z48.817 Encounter for surgical aftercare following surgery on the skin and subcutaneous tissue (principal); F17.210 Nicotine dependence, cigarettes, uncomplicated; Z79.899 Other long term (current) drug therapy
CPT/HCPCS: 99283-25

== ENCOUNTER 2021-02-13 05:30 | Day surgery (SDC) | payer OTHER | END 2021-02-13 23:37 | disposition home or self-care (01) | LOC: WOUND 05:30 | DX: T81.31XA Disruption of external operation (surgical) wound, not elsewhere classified, initial encounter (principal); L02.413 Cutaneous abscess of right upper limb; F17.210 Nicotine dependence, cigarettes, uncomplicated; Z86.14 Personal history of Methicillin resistant Staphylococcus aureus infection; Y83.8 Other surgical procedures as the cause of abnormal reaction of the patient, or of later complication, without mention of misadventure at the time of the procedure | CPT/HCPCS: A9270; G0463 ==

== ENCOUNTER 2021-02-14 06:25 | Day surgery (SDC) | payer OTHER ==
--- NOTE | 2021-02-14 18:19 | NUR ---
ATTEMPTED PICC LINE IN L ARM. UNABLE TO GET WIRE TO ADVANCE INTO VEIN. ATTEMPTED 1 MORE TIME WITH NO LUCK. DECIDED TO START IV AND RUN ANTIBIOTIC.
== END 2021-02-14 18:00 | disposition home or self-care (01) ==
LOC: ATC 06:25
DX: M86.1 Other acute osteomyelitis (principal)
CPT/HCPCS: J0878

== ENCOUNTER 2021-02-15 15:24 | Day surgery (SDC) | payer OTHER ==
--- NOTE | 2021-02-15 19:46 | NUR ---
PT CAME IN WITH WOUND VAC DRESSING HANGING OFF. PT HAD USED WIDE TAPE ALL AROUND HIS ARM. I TOOK THE DRESSING OFF. I CLEANED IT WITH SALINE. I USED SOME VASELINE MATTI ONVER WOUND BED. I PUT GAUZE ON THE OUTSIDE OF WOUND AND WRAPPED IT LOOSLEY WITH PRAVEENA WRAP.
== END 2021-02-15 17:00 | disposition home or self-care (01) ==
LOC: ATC 15:24
DX: M86.1 Other acute osteomyelitis (principal)
CPT/HCPCS: J0878

== ENCOUNTER 2021-02-16 12:36 | Day surgery (SDC) | payer OTHER | END 2021-02-16 23:00 | disposition home or self-care (01) | LOC: WOUND 12:36 | DX: S51.001D Unspecified open wound of right elbow, subsequent encounter (principal); X58.XXXD Exposure to other specified factors, subsequent encounter; L02.413 Cutaneous abscess of right upper limb; B95.62 Methicillin resistant Staphylococcus aureus infection as the cause of diseases classified elsewhere | CPT/HCPCS: G0463 ==

== ENCOUNTER 2021-02-17 01:02 | Day surgery (SDC) | payer OTHER | END 2021-02-17 14:32 | disposition home or self-care (01) | LOC: ATC 01:02 | DX: M86.1 Other acute osteomyelitis (principal) | CPT/HCPCS: 96365; J0878 ==

== ENCOUNTER 2021-02-18 04:15 | Day surgery (SDC) | payer OTHER | END 2021-02-18 14:04 | disposition home or self-care (01) | LOC: ATC 04:15 | DX: M86.121 Other acute osteomyelitis, right humerus (principal); B95.62 Methicillin resistant Staphylococcus aureus infection as the cause of diseases classified elsewhere; F17.210 Nicotine dependence, cigarettes, uncomplicated | CPT/HCPCS: 96365; J0878 ==

== ENCOUNTER 2021-02-18 08:48 | Day surgery (SDC) | payer OTHER | END 2021-02-18 23:00 | disposition home or self-care (01) | LOC: WOUND 08:48 | DX: S51.001D Unspecified open wound of right elbow, subsequent encounter (principal); X58.XXXD Exposure to other specified factors, subsequent encounter; L02.413 Cutaneous abscess of right upper limb; B95.62 Methicillin resistant Staphylococcus aureus infection as the cause of diseases classified elsewhere ==

== ENCOUNTER 2021-02-19 05:35 | Day surgery (SDC) | payer OTHER | END 2021-02-19 14:20 | disposition home or self-care (01) | LOC: ATC 05:35 | DX: M86.121 Other acute osteomyelitis, right humerus (principal); F17.200 Nicotine dependence, unspecified, uncomplicated | CPT/HCPCS: 96365; C1751; J0878 ==

== ENCOUNTER 2021-02-20 04:12 | Day surgery (SDC) | payer OTHER | END 2021-02-20 10:11 | disposition home or self-care (01) | LOC: ATC 04:12 | DX: M86.121 Other acute osteomyelitis, right humerus (principal); F17.210 Nicotine dependence, cigarettes, uncomplicated | CPT/HCPCS: 96365; J0878 ==

== ENCOUNTER 2021-02-20 04:32 | Day surgery (SDC) | payer OTHER | END 2021-02-20 23:33 | disposition home or self-care (01) | LOC: WOUND 04:32 | DX: L98.495 Non-pressure chronic ulcer of skin of other sites with muscle involvement without evidence of necrosis (principal); L02.413 Cutaneous abscess of right upper limb; Z86.14 Personal history of Methicillin resistant Staphylococcus aureus infection ==

== ENCOUNTER 2021-02-21 01:24 | Day surgery (SDC) | payer OTHER | END 2021-02-21 14:30 | disposition home or self-care (01) | LOC: ATC 01:24 | DX: M86.121 Other acute osteomyelitis, right humerus (principal); F17.200 Nicotine dependence, unspecified, uncomplicated | CPT/HCPCS: 96365; J0878 ==

== ENCOUNTER 2021-02-23 01:47 | Day surgery (SDC) | payer OTHER | END 2021-02-23 23:11 | disposition home or self-care (01) | LOC: WOUND | DX: S51.001D Unspecified open wound of right elbow, subsequent encounter (principal); X58.XXXD Exposure to other specified factors, subsequent encounter; L02.413 Cutaneous abscess of right upper limb; B95.62 Methicillin resistant Staphylococcus aureus infection as the cause of diseases classified elsewhere ==

== ENCOUNTER 2021-02-25 03:17 | Day surgery (SDC) | payer OTHER | END 2021-02-25 23:50 | disposition home or self-care (01) | LOC: WOUND 03:17 | DX: S51.001D Unspecified open wound of right elbow, subsequent encounter (principal); X58.XXXD Exposure to other specified factors, subsequent encounter; B95.62 Methicillin resistant Staphylococcus aureus infection as the cause of diseases classified elsewhere | CPT/HCPCS: A9270 ==

== ENCOUNTER 2021-02-26 03:38 | Day surgery (SDC) | payer OTHER | END 2021-02-26 14:12 | disposition home or self-care (01) | LOC: ATC 03:38 | DX: M86.121 Other acute osteomyelitis, right humerus (principal); B95.62 Methicillin resistant Staphylococcus aureus infection as the cause of diseases classified elsewhere; F17.200 Nicotine dependence, unspecified, uncomplicated; F19.10 Other psychoactive substance abuse, uncomplicated | CPT/HCPCS: 96365; J0878 ==

== ENCOUNTER 2021-02-27 03:03 | Day surgery (SDC) | payer OTHER | END 2021-02-27 15:18 | disposition home or self-care (01) | LOC: ATC 03:03 | DX: M86.121 Other acute osteomyelitis, right humerus (principal); B95.62 Methicillin resistant Staphylococcus aureus infection as the cause of diseases classified elsewhere; F17.200 Nicotine dependence, unspecified, uncomplicated; F19.10 Other psychoactive substance abuse, uncomplicated | CPT/HCPCS: J0878 ==

== ENCOUNTER 2021-02-27 05:27 | Day surgery (SDC) | payer OTHER | END 2021-02-27 22:57 | disposition home or self-care (01) | LOC: WOUND 05:27 | DX: S51.001D Unspecified open wound of right elbow, subsequent encounter (principal); X58.XXXD Exposure to other specified factors, subsequent encounter; L02.413 Cutaneous abscess of right upper limb; B95.62 Methicillin resistant Staphylococcus aureus infection as the cause of diseases classified elsewhere ==

== ENCOUNTER 2021-02-28 14:00 | Day surgery (SDC) | payer OTHER | END 2021-02-28 14:38 | disposition home or self-care (01) | LOC: ATC 14:00 | DX: M86.1 Other acute osteomyelitis (principal) | CPT/HCPCS: 96365; J0878 ==

== ENCOUNTER 2021-03-01 13:24 | Day surgery (SDC) | payer OTHER | END 2021-03-01 13:57 | disposition home or self-care (01) | LOC: ATC 13:24 | DX: M86.1 Other acute osteomyelitis (principal) | CPT/HCPCS: J0878 ==

== ENCOUNTER 2021-03-02 03:26 | Day surgery (SDC) | payer OTHER ==
[2021-03-02 14:18] LABS: Hematocrit 43.9 % (37.0-53.0); Hemoglobin 14.5 g/dL (13.5-17.5); Mean Corpuscular HGB 30.1 pg (26.0-34.0); Mean Corpuscular Volume 91 fL (80-100); Platelet Count 455 K/mm3 (150-400); RDW Coefficient Variation 13.7 % (11.7-14.2); RDW Standard Deviation 46.4 fL (35.1-46.3); Red Blood Cell Count 4.82 M/mm3 (4.30-5.90); White Blood Cell Count 10.12 K/mm3 (4.00-11.30)
[2021-03-02 14:50] LABS: Alanine Aminotransfer (ALT/SGP 26 U/L (12-78); Albumin, Blood 3.2 g/dL (3.4-5.0); Albumin/Globulin Ratio 0.8 (0.8-1.8); Alk Phos 129 U/L (50-136); Anion Gap 3 mmol/L (6-16); Aspartate Aminotrans (AST/SGOT 19 U/L (12-37); Bilirubin, Total 0.5 mg/dL (0.1-1.0); Blood Urea Nitrogen 11 mg/dL (8-24); Bun/Creatinine Ratio 12.5 (12.0-20.0); CO2, Blood 29 mmol/L (21-32); CPK Creatine Kinase 73 U/L (39-308); Calcium, Blood 8.9 mg/dL (8.5-10.1); Chloride, Blood 104 mmol/L (98-108); Creatinine, Blood 0.88 mg/dL (0.60-1.20); Globulin, Blood 4.2 g/dL (2.2-4.0); Glomerular Filtration Rate >60 (60-); Glucose, Blood 88 mg/dL (70-99); Sodium, Blood 136 mmol/L (136-145); Total Protein, Blood 7.4 g/dL (6.4-8.2)
== END 2021-03-02 14:00 | disposition home or self-care (01) ==
LOC: ATC 03:26
PROVIDERS: Family Medicine
DX: M86.1 Other acute osteomyelitis (principal)
CPT/HCPCS: 80053; 82550; 85027; J0878

== ENCOUNTER 2021-03-02 12:11 | Day surgery (SDC) | payer OTHER | END 2021-03-02 23:06 | disposition home or self-care (01) | LOC: WOUND 12:11 | DX: S51.001A Unspecified open wound of right elbow, initial encounter (principal); X58.XXXA Exposure to other specified factors, initial encounter | CPT/HCPCS: A9270 ==

== ENCOUNTER 2021-03-04 05:13 | Day surgery (SDC) | payer OTHER | END 2021-03-04 23:37 | disposition home or self-care (01) | LOC: WOUND 05:13 | DX: S51.001A Unspecified open wound of right elbow, initial encounter (principal); L02.413 Cutaneous abscess of right upper limb; X58.XXXA Exposure to other specified factors, initial encounter ==

== ENCOUNTER 2021-03-04 05:18 | Day surgery (SDC) | payer OTHER | END 2021-03-04 13:55 | disposition home or self-care (01) | LOC: ATC 05:18 | DX: M86.121 Other acute osteomyelitis, right humerus (principal); B95.62 Methicillin resistant Staphylococcus aureus infection as the cause of diseases classified elsewhere; F17.210 Nicotine dependence, cigarettes, uncomplicated | CPT/HCPCS: 96365; J0878 ==

== ENCOUNTER 2021-03-05 10:50 | Day surgery (SDC) | payer OTHER | END 2021-03-05 11:25 | disposition home or self-care (01) | LOC: ATC 10:50 | DX: M86.121 Other acute osteomyelitis, right humerus (principal) | CPT/HCPCS: 96365; J0878 ==

== ENCOUNTER 2021-03-06 01:44 | Day surgery (SDC) | payer OTHER | END 2021-03-06 13:56 | disposition home or self-care (01) | LOC: ATC 01:44 | DX: M86.121 Other acute osteomyelitis, right humerus (principal); B95.62 Methicillin resistant Staphylococcus aureus infection as the cause of diseases classified elsewhere; F17.210 Nicotine dependence, cigarettes, uncomplicated | CPT/HCPCS: J0878 ==

== ENCOUNTER 2021-03-07 10:51 | Day surgery (SDC) | payer OTHER | END 2021-03-07 12:00 | disposition home or self-care (01) | LOC: ATC 10:51 | DX: M86.1 Other acute osteomyelitis (principal) | CPT/HCPCS: J0878 ==

== ENCOUNTER 2021-03-08 10:44 | Day surgery (SDC) | payer OTHER | END 2021-03-08 22:39 | disposition home or self-care (01) | LOC: ATC 10:44 | DX: M86.121 Other acute osteomyelitis, right humerus (principal) | CPT/HCPCS: J0878 ==

== ENCOUNTER 2021-03-09 04:17 | Day surgery (SDC) | payer OTHER | END 2021-03-09 22:52 | disposition home or self-care (01) | LOC: WOUND | DX: S51.001D Unspecified open wound of right elbow, subsequent encounter (principal); X58.XXXD Exposure to other specified factors, subsequent encounter; L02.413 Cutaneous abscess of right upper limb; B95.62 Methicillin resistant Staphylococcus aureus infection as the cause of diseases classified elsewhere | CPT/HCPCS: A9270 ==

== ENCOUNTER 2021-03-10 02:34 | Day surgery (SDC) | payer OTHER | END 2021-03-10 13:36 | disposition home or self-care (01) | LOC: ATC 02:34 | DX: M86.1 Other acute osteomyelitis (principal) | CPT/HCPCS: J0878 ==

== ENCOUNTER 2021-03-10 10:19 | Day surgery (SDC) | payer OTHER | END 2021-03-10 22:54 | disposition home or self-care (01) | LOC: WOUND 10:19 | DX: S51.001D Unspecified open wound of right elbow, subsequent encounter (principal); X58.XXXD Exposure to other specified factors, subsequent encounter; L02.413 Cutaneous abscess of right upper limb; B95.62 Methicillin resistant Staphylococcus aureus infection as the cause of diseases classified elsewhere ==

== ENCOUNTER 2021-03-12 01:00 | Day surgery (SDC) | payer OTHER | END 2021-03-12 14:21 | disposition home or self-care (01) | LOC: ATC 01:00 | DX: M86.1 Other acute osteomyelitis (principal) | CPT/HCPCS: 96365; J0878 ==

== ENCOUNTER 2021-03-13 01:29 | Day surgery (SDC) | payer OTHER | END 2021-03-13 14:02 | disposition home or self-care (01) | LOC: ATC 01:29 | DX: M86.121 Other acute osteomyelitis, right humerus (principal); B95.62 Methicillin resistant Staphylococcus aureus infection as the cause of diseases classified elsewhere | CPT/HCPCS: J0878 ==

== ENCOUNTER 2021-03-13 01:46 | Day surgery (SDC) | payer OTHER | END 2021-03-13 12:00 | disposition home or self-care (01) | LOC: WOUND 01:46 | DX: S51.001A Unspecified open wound of right elbow, initial encounter (principal); X58.XXXA Exposure to other specified factors, initial encounter ==

== ENCOUNTER 2021-03-14 10:51 | Day surgery (SDC) | payer OTHER | END 2021-03-14 11:43 | disposition home or self-care (01) | LOC: ATC 10:51 | DX: M86.121 Other acute osteomyelitis, right humerus (principal); B95.62 Methicillin resistant Staphylococcus aureus infection as the cause of diseases classified elsewhere; F17.210 Nicotine dependence, cigarettes, uncomplicated | CPT/HCPCS: J0878 ==

== ENCOUNTER 2021-03-15 04:37 | Day surgery (SDC) | payer OTHER | END 2021-03-15 11:28 | disposition home or self-care (01) | LOC: ATC 04:37 | DX: M86.121 Other acute osteomyelitis, right humerus (principal); B95.62 Methicillin resistant Staphylococcus aureus infection as the cause of diseases classified elsewhere; F17.210 Nicotine dependence, cigarettes, uncomplicated; F19.10 Other psychoactive substance abuse, uncomplicated | CPT/HCPCS: J0878 ==

== ENCOUNTER 2021-03-16 01:34 | Day surgery (SDC) | payer OTHER ==
[2021-03-16 14:32] LABS: BASOPHILS ABSOLUTE AUTO 0.06 K/mm3 (0.00-0.23); BASOPHILS PERCENT AUTO 1 % (0-2); EOSINOPHILS ABSOLUTE AUTO 0.17 K/mm3 (0.00-0.68); EOSINOPHILS PERCENT AUTO 2 % (0-6); Hematocrit 42.3 % (37.0-53.0); Hemoglobin 14.1 g/dL (13.5-17.5); IMMATURE GRAN ABSOLUTE AUTO 0.02 K/mm3 (0.00-0.10); IMMATURE GRAN PERCENT AUTO 0 % (0-1); LYMPHOCYTES ABSOLUTE AUTO 1.71 K/mm3 (0.84-5.20); LYMPHOCYTES PERCENT AUTO 20 % (21-46); MONOCYTES ABSOLUTE AUTO 0.85 K/mm3 (0.16-1.47); MONOCYTES PERCENT AUTO 10 % (4-13); Mean Corpuscular HGB 30.4 pg (26.0-34.0); Mean Corpuscular HGB Conc 33.3 g/dL (31.5-36.5); Mean Corpuscular Volume 91 fL (80-100); Mean Platelet Volume 9.9 fL (9.1-12.4); NEUTROPHILS ABSOLUTE AUTO 5.63 K/mm3 (1.96-9.15); NEUTROPHILS PERCENT AUTO 67 % (41-73); Platelet Count 461 K/mm3 (150-400); RDW Coefficient Variation 14.5 % (11.7-14.2); RDW Standard Deviation 48.7 fL (35.1-46.3); Red Blood Cell Count 4.64 M/mm3 (4.30-5.90); White Blood Cell Count 8.44 K/mm3 (4.00-11.30)
[2021-03-16 15:06] LABS: Alanine Aminotransfer (ALT/SGP 29 U/L (12-78); Albumin/Globulin Ratio 0.7 (0.8-1.8); Alk Phos 117 U/L (50-136); Anion Gap 3 mmol/L (6-16); Aspartate Aminotrans (AST/SGOT 39 U/L (12-37); Bilirubin, Total 0.5 mg/dL (0.1-1.0); Blood Urea Nitrogen 13 mg/dL (8-24); Bun/Creatinine Ratio 18.8 (12.0-20.0); CO2, Blood 27 mmol/L (21-32); CPK Creatine Kinase 141 U/L (39-308); Calcium, Blood 8.8 mg/dL (8.5-10.1); Chloride, Blood 110 mmol/L (98-108); Creatinine, Blood 0.69 mg/dL (0.60-1.20); Globulin, Blood 4.2 g/dL (2.2-4.0); Glomerular Filtration Rate >60 (60-); Glucose, Blood 95 mg/dL (70-99); Potassium, Blood 4.6 mmol/L (3.5-5.5); Sodium, Blood 140 mmol/L (136-145); Total Protein, Blood 7.2 g/dL (6.4-8.2)
== END 2021-03-16 14:38 | disposition home or self-care (01) ==
LOC: ATC 01:34
PROVIDERS: Family Medicine
DX: M86.121 Other acute osteomyelitis, right humerus (principal)
CPT/HCPCS: 80053; 82550; 85025; J0878

== ENCOUNTER 2021-03-16 04:19 | Day surgery (SDC) | payer OTHER | END 2021-03-16 12:00 | disposition home or self-care (01) | LOC: WOUND 04:19 | DX: S51.001D Unspecified open wound of right elbow, subsequent encounter (principal); X58.XXXD Exposure to other specified factors, subsequent encounter; L02.413 Cutaneous abscess of right upper limb; B95.62 Methicillin resistant Staphylococcus aureus infection as the cause of diseases classified elsewhere | CPT/HCPCS: A9270 ==

== ENCOUNTER 2021-03-17 05:52 | Day surgery (SDC) | payer OTHER | END 2021-03-17 14:03 | disposition home or self-care (01) | LOC: ATC 05:52 | DX: M86.121 Other acute osteomyelitis, right humerus (principal); B95.62 Methicillin resistant Staphylococcus aureus infection as the cause of diseases classified elsewhere; F17.210 Nicotine dependence, cigarettes, uncomplicated; F19.10 Other psychoactive substance abuse, uncomplicated | CPT/HCPCS: J0878 ==

== ENCOUNTER 2021-03-18 00:40 | Day surgery (SDC) | payer OTHER | END 2021-03-18 23:16 | disposition home or self-care (01) | LOC: WOUND 00:40 | DX: S51.001D Unspecified open wound of right elbow, subsequent encounter (principal); X58.XXXD Exposure to other specified factors, subsequent encounter; L02.413 Cutaneous abscess of right upper limb; B95.62 Methicillin resistant Staphylococcus aureus infection as the cause of diseases classified elsewhere ==

== ENCOUNTER 2021-08-27 09:54 | Emergency (ER) | payer OTHER ==
[~2021-08-27] VITALS: Ht 177.8 cm; Wt 81.7 kg
[2021-08-27] MEDS ORDERED: CEPH500 PO (10:23)
[2021-08-27] MEDS ORDERED: Bactrim Ds Tab1 EACH PO (10:23)
== END 2021-08-27 10:27 | disposition home or self-care (01) ==
LOC: ER 09:54
DX: L03.211 Cellulitis of face (principal); F17.210 Nicotine dependence, cigarettes, uncomplicated
CPT/HCPCS: 99283; A9270

== ENCOUNTER 2021-08-29 12:11 | Emergency (ER) | payer OTHER ==
[~2021-08-29] VITALS: Ht 177.8 cm; Wt 79.4 kg
[~2021-08-29 12:11] MED LIST changes: +Bactrim Ds Tab1 EACH PO; +CEPH500 PO
[2021-08-29 12:47] LABS: BASOPHILS ABSOLUTE AUTO 0.04 K/mm3 (0.00-0.23); BASOPHILS PERCENT AUTO 0 % (0-2); EOSINOPHILS ABSOLUTE AUTO 0.14 K/mm3 (0.00-0.68); EOSINOPHILS PERCENT AUTO 1 % (0-6); Hematocrit 47.9 % (37.0-53.0); Hemoglobin 15.8 g/dL (13.5-17.5); IMMATURE GRAN ABSOLUTE AUTO 0.04 K/mm3 (0.00-0.10); IMMATURE GRAN PERCENT AUTO 0 % (0-1); LYMPHOCYTES ABSOLUTE AUTO 2.01 K/mm3 (0.84-5.20); LYMPHOCYTES PERCENT AUTO 18 % (21-46); MONOCYTES ABSOLUTE AUTO 1.34 K/mm3 (0.16-1.47); MONOCYTES PERCENT AUTO 12 % (4-13); Mean Corpuscular HGB 29.6 pg (26.0-34.0); Mean Corpuscular Volume 90 fL (80-100); Mean Platelet Volume 9.5 fL (9.1-12.4); NEUTROPHILS ABSOLUTE AUTO 7.64 K/mm3 (1.96-9.15); NEUTROPHILS PERCENT AUTO 68 % (41-73); Platelet Count 415 K/mm3 (150-400); RDW Coefficient Variation 14.1 % (11.7-14.2); RDW Standard Deviation 46.5 fL (35.1-46.3); Red Blood Cell Count 5.34 M/mm3 (4.30-5.90); White Blood Cell Count 11.21 K/mm3 (4.00-11.30)
[2021-08-29 13:05] LABS: Albumin, Blood 3.3 g/dL (3.4-5.0); Albumin/Globulin Ratio 0.9 (0.8-1.8); Bilirubin, Total 0.4 mg/dL (0.1-1.0); Bun/Creatinine Ratio 15.4 (12.0-20.0); Calcium, Blood 8.7 mg/dL (8.5-10.1); Creatinine, Blood 1.17 mg/dL (0.60-1.20); Globulin, Blood 3.8 g/dL (2.2-4.0); Total Protein, Blood 7.1 g/dL (6.4-8.2)
== END 2021-08-29 16:00 | disposition home or self-care (01) ==
LOC: ER 12:11
PROVIDERS: Physician Assistant
DX: L03.213 Periorbital cellulitis (principal); F17.210 Nicotine dependence, cigarettes, uncomplicated
CPT/HCPCS: 36415; 70487; 80053; 85025; J2405; J7030; Q9967

== ENCOUNTER 2022-09-08 15:31 | Emergency (ER) | payer OTHER ==
[~2022-09-08] VITALS: Ht 177.8 cm; Wt 79.4 kg
[2022-09-08 15:36] VITALS: BP 159/99
[2022-09-08] MEDS ORDERED: CEPH500 PO (16:33)
[2022-09-08] MEDS ORDERED: ONDA4 PO (23:14)
[2022-09-08] MEDS ORDERED: AMOCLA875 PO (23:14)
== END 2022-09-08 17:55 | disposition home or self-care (01) ==
LOC: ER 15:31
DX: S61.012A Laceration without foreign body of left thumb without damage to nail, initial encounter (principal); F17.210 Nicotine dependence, cigarettes, uncomplicated; W20.8XXA Other cause of strike by thrown, projected or falling object, initial encounter
CPT/HCPCS: 12002; 99282-25

== ENCOUNTER 2022-09-08 21:14 | Emergency (ER) | payer OTHER ==
[~2022-09-08] VITALS: Ht 175.3 cm; Wt 79.4 kg
[2022-09-08 21:18] VITALS: BP 167/101
[2022-09-08] MEDS ORDERED: AMOCLA875 PO (23:14)
[2022-09-08] MEDS ORDERED: ONDA4 PO (23:14)
== END 2022-09-08 23:28 | disposition home or self-care (01) ==
LOC: ER 21:14
DX: S62.522B Displaced fracture of distal phalanx of left thumb, initial encounter for open fracture (principal); W22.8XXA Striking against or struck by other objects, initial encounter; F17.210 Nicotine dependence, cigarettes, uncomplicated
CPT/HCPCS: 73140; A9270

== ENCOUNTER 2023-08-17 12:17 | Emergency (ER) | payer OTHER ==
[~2023-08-17] VITALS: Ht 175.3 cm; Wt 55.8 kg
[2023-08-17 14:00] VITALS: BP 150/98
== END 2023-08-17 15:12 | disposition home or self-care (01) ==
LOC: ER 12:17
DX: R10.32 Left lower quadrant pain (principal); N40.0 Benign prostatic hyperplasia without lower urinary tract symptoms; G89.29 Other chronic pain; F17.210 Nicotine dependence, cigarettes, uncomplicated; Z79.899 Other long term (current) drug therapy; Z98.890 Other specified postprocedural states; Z87.19 Personal history of other diseases of the digestive system

== ENCOUNTER 2023-08-18 16:41 | Emergency (ER) | payer OTHER ==
[~2023-08-18] VITALS: Ht 175.3 cm; Wt 63.5 kg
[2023-08-18 19:47] VITALS: BP 123/75
== END 2023-08-18 20:00 | disposition home or self-care (01) ==
LOC: ER 16:41
DX: F11.93 Opioid use, unspecified with withdrawal (principal); F17.210 Nicotine dependence, cigarettes, uncomplicated

== ENCOUNTER 2024-10-07 07:10 | Inpatient (IN) | payer OTHER ==
[~2024-10-07] VITALS: Ht 167.6 cm; Wt 81.7 kg
[~2024-10-07 07:10] MED LIST changes: +AMOCLA875 PO; +BUPRENORPHIN-N1 EAC5 SL; +Colace100 MG PO; +DICY20 PO; +DOCU100 PO; +MIRALAX11914 PO; +ONDA4 PO; +TAMS.4ER PO
[2024-10-07 07:31] LABS: BASOPHILS ABSOLUTE AUTO 0.05 K/mm3 (0.00-0.23); BASOPHILS PERCENT AUTO 0 % (0-2); EOSINOPHILS ABSOLUTE AUTO 0.17 K/mm3 (0.00-0.68); EOSINOPHILS PERCENT AUTO 1 % (0-6); Hematocrit 37.6 % (37.0-53.0); Hemoglobin 12.6 g/dL (13.5-17.5); IMMATURE GRAN ABSOLUTE AUTO 0.07 K/mm3 (0.00-0.10); IMMATURE GRAN PERCENT AUTO 0 % (0-1); LYMPHOCYTES ABSOLUTE AUTO 1.39 K/mm3 (0.84-5.20); LYMPHOCYTES PERCENT AUTO 8 % (21-46); MONOCYTES ABSOLUTE AUTO 1.62 K/mm3 (0.16-1.47); MONOCYTES PERCENT AUTO 9 % (4-13); Mean Corpuscular HGB 29.5 pg (26.0-34.0); Mean Corpuscular HGB Conc 33.5 g/dL (31.5-36.5); Mean Corpuscular Volume 88 fL (80-100); Mean Platelet Volume 10.3 fL (9.1-12.4); NEUTROPHILS PERCENT AUTO 82 % (41-73); Platelet Count 238 K/mm3 (150-400); RDW Coefficient Variation 13.2 % (11.7-14.2); RDW Standard Deviation 42.8 fL (35.1-46.3); Red Blood Cell Count 4.27 M/mm3 (4.30-5.90)
[2024-10-07] MEDS ORDERED: NS 500 ML IV SCH (07:40)
[2024-10-07 07:56] LABS: Albumin, Blood 3.2 g/dL (3.4-5.0); Bilirubin, Total 2.1 mg/dL (0.1-1.0); Bun/Creatinine Ratio 31.7 (12.0-20.0); Calcium, Blood 8.2 mg/dL (8.5-10.1); Creatinine, Blood 1.67 mg/dL (0.60-1.20); Globulin, Blood 3.3 g/dL (2.2-4.0); Potassium, Blood 4.2 mmol/L (3.5-5.5); Total Protein, Blood 6.5 g/dL (6.4-8.2)
[2024-10-07] MEDS ORDERED: Lactated Ringer's 1,000 ML IV ONE (09:00)
[2024-10-07 09:38] LABS: Source, Urine Clean Catch
[2024-10-07 09:43] LABS: Appearance, Urine Clear (Clear); Bilirubin, Urine Neg (Neg); Blood, Urine 5+ (Neg); Color, Urine Yellow (P-Yellow); Glucose Qualitative, Urine Neg (Neg); Ketones, Urine 3+ (Neg); Leukocyte Esterase, Urine Neg (Neg); Nitrite, Urine Neg (Neg); Protein, Urine 2+ (Neg); Urobilinogen, Urine NORM (Normal)
[2024-10-07 09:51] LABS: Amorphous Light (0-Heavy); Bacteria Mod /hpf; Granular Casts 0-2 /lpf (0); Squamous Epithelial Cells Mod /hpf (Few); White Blood Cells, Urine 0-2 /hpf (0-5)
[2024-10-07] MEDS ORDERED: Acetaminophen 325 MG TABLET PO PRN (10:55)
[2024-10-07] MEDS ORDERED: Polyethylene Glycol 3350 17 gm PO PRN (10:55)
[2024-10-07] MEDS ORDERED: NS 1,000 ML IV SCH (10:55)
[2024-10-07 12:23] VITALS: BP 121/62
--- NOTE | 2024-10-07 12:37 | NUR ---
ADMISSION: PT ARRIVED TO PCU 1 @1210 VIA GURNEY. PT ALERT AND ORIENTED X4, ABLE TO FOLLOW COMMANDS AND MAKE NEEDS KNOWN. PEERLA. STRENGTH EQUAL BILATERALLY. BP STABLE. HR SR 70'S. AFEBRILE. SPO2 >94% ON ROOM AIR. LUNG SOUNDS COARSE. PT WITH NON PRODUCTIVE COUGH. ABD SOFT, NON TENDER, BOWEL SOUNDS +. PULSES STRONG AND EQUAL THROUGHOUT. PT SOILED ON ARRIVAL, FULL BEDBATH COMPLETED. SCRATCHES AND BRUISING SCATTERED THROUGHOUT. PT STATES INGESTION OF METH PRIOR TO ARRIVAL AT HOSPITAL. PT STATES WATER AT HOME HAS BEEN TURNED OFF. UNABLE TO FIND TRANSPORTATION FOR GROCERIES. MEDICATIONS AND HEALTH HISTORY REVIED. BED IN LOW, ALARM ON FOR SAFETY, CALL LIGHT IN REACH.
[2024-10-07 15:14] VITALS: BP 121/81
--- NOTE | 2024-10-07 16:50 | NUR ---
SHIFT SUMMARY: NO ACUTE CHANGES SINCE ADMISSION. PT WAS ABLE TO WORK WITH PHYSICAL THERAPY, TOELRATED WELL. VSS. REMAINS MEDICAL STATUS. BROTHER AT BEDSIDE THIS EVENING, UPDATED ON PT PLAN OF CARE. BED IN LOW, CALL LIGHT IN REACH, WILL REPORT TO ONCOMING RN.
[2024-10-07 20:18] VITALS: BP 125/79
[2024-10-07] MEDS ORDERED: Docusate Sodium/Senna 1 Tab PO SCH (21:00)
--- NOTE | 2024-10-07 21:31 | NUR ---
NURSE NOTE PT INSISTED ON LEAVING AMA, THIS RN AND RAIL LOADER MARYSOL ATTEMPED TO REASON WITH PT. WE EXPLAINED THE RISKS OF LEAVING AND BENIFITS OF STAYING IN THE HOSPITAL. PT STILL WANTED TO LEAVE. RESIDENT MD RICARDO WAS INFORMED AND ROUNDED ON THE PT IN ATTMEP TO HAVE PT STAY IN HOSPITAL, PT STILL DENIED WANTING TO STAY. AMA PAPER WORK WAS OBTAINED. NURSING AUTOMATIC MACHINE ATTENDANT WAS NOTIFED. THIS RN CALLED PHONE NUMBER OF KELLIE LISTED IN PT CHART TO INFORM HIM OF SITUATION, FRIEND KELLIE ATTEMPED TO TRY TO REACH FAMILY IN TOWN BUT WAS UNABLE TO DO SO. PT WAS WALKED DOWN TO THE DOOR WITH SECURITY. PT TOOK PERSONAL BELONGINGS WITH HIM.
[2024-10-08] MEDS ORDERED: Multivitamins 1 Tab PO SCH (09:00)
[2024-10-08] MEDS ORDERED: Enoxaparin 40 MG/0.4 ML SYR SC SCH (09:00)
== END 2024-10-07 21:30 | disposition left against medical advice (07) | DRG 683 ==
LOC: ER 07:10 → PCU 10:46
PROVIDERS: Student in an Organized Health Care Education/Training Program; ADMIT Internal Medicine
PROC: 0HC6XZZ Extirpation of Matter from Back Skin, External Approach (ICD-10-PCS; principal; 2024-10-07)
DX: N17.9 Acute kidney failure, unspecified (principal); E87.20 Acidosis, unspecified; M62.82 Rhabdomyolysis; N40.0 Benign prostatic hyperplasia without lower urinary tract symptoms; F17.200 Nicotine dependence, unspecified, uncomplicated; R74.01 Elevation of levels of liver transaminase levels; D64.9 Anemia, unspecified; D72.829 Elevated white blood cell count, unspecified; S80.812A Abrasion, left lower leg, initial encounter; S80.811A Abrasion, right lower leg, initial encounter; S90.812A Abrasion, left foot, initial encounter; S90.811A Abrasion, right foot, initial encounter; E86.0 Dehydration; S20.461A Insect bite (nonvenomous) of right back wall of thorax, initial encounter; W57.XXXA Bitten or stung by nonvenomous insect and other nonvenomous arthropods, initial encounter; W18.39XA Other fall on same level, initial encounter; Z53.29 Procedure and treatment not carried out because of patient's decision for other reasons; Z86.14 Personal history of Methicillin resistant Staphylococcus aureus infection; Z90.79 Acquired absence of other genital organ(s)
CPT/HCPCS: 70450; 71046; 80053; 81001; 82550; 82947; 83735; 84100; 85025; 87086; 93005; 93010; 97161; 97530; J7030; J7120

== ENCOUNTER 2024-10-26 09:31 | Emergency (ER) | payer OTHER ==
[~2024-10-26] VITALS: Ht 172.7 cm; Wt 74.8 kg
[2024-10-26 10:15] LABS: BASOPHILS ABSOLUTE AUTO 0.05 K/mm3 (0.00-0.23); BASOPHILS PERCENT AUTO 1 % (0-2); EOSINOPHILS ABSOLUTE AUTO 0.27 K/mm3 (0.00-0.68); EOSINOPHILS PERCENT AUTO 3 % (0-6); Hematocrit 43.0 % (37.0-53.0); Hemoglobin 14.3 g/dL (13.5-17.5); IMMATURE GRAN ABSOLUTE AUTO 0.02 K/mm3 (0.00-0.10); IMMATURE GRAN PERCENT AUTO 0 % (0-1); LYMPHOCYTES ABSOLUTE AUTO 1.51 K/mm3 (0.84-5.20); LYMPHOCYTES PERCENT AUTO 17 % (21-46); MONOCYTES ABSOLUTE AUTO 0.77 K/mm3 (0.16-1.47); MONOCYTES PERCENT AUTO 9 % (4-13); Mean Corpuscular HGB Conc 33.3 g/dL (31.5-36.5); Mean Corpuscular Volume 89 fL (80-100); NEUTROPHILS ABSOLUTE AUTO 6.06 K/mm3 (1.96-9.15); NEUTROPHILS PERCENT AUTO 70 % (41-73); NRBC ABSOLUTE 0.00 K/mm3 (0.00-0.02); NRBC Auto 0.0 /100 WBC (0.0-0.2); Platelet Count 455 K/mm3 (150-400); RDW Coefficient Variation 14.0 % (11.7-14.2); RDW Standard Deviation 45.1 fL (35.1-46.3)
[2024-10-26 10:44] LABS: Alanine Aminotransfer (ALT/SGP 32.0 U/L (12-78); Albumin, Blood 3.4 g/dL (3.4-5.0); Albumin/Globulin Ratio 0.9 (0.8-1.8); Anion Gap 8.0 mmol/L (3-11); Aspartate Aminotrans (AST/SGOT 21.0 U/L (12-37); Bilirubin, Total 0.4 mg/dL (0.1-1.0); Blood Urea Nitrogen 10.0 mg/dL (8-24); CO2, Blood 22.0 mmol/L (21-32); Calcium, Blood 8.3 mg/dL (8.5-10.1); Chloride, Blood 110.0 mmol/L (98-108); Creatinine, Blood 0.64 mg/dL (0.60-1.20); Globulin, Blood 3.6 g/dL (2.2-4.0); Glucose, Blood 97.0 mg/dL (70-99); Potassium, Blood 3.7 mmol/L (3.5-5.5); Sodium, Blood 136.0 mmol/L (136-145); Total Protein, Blood 7.0 g/dL (6.4-8.2)
[2024-10-26 14:14] VITALS: BP 147/84
[2024-10-26] MEDS ORDERED: IBUP600 PO (14:34)
[2024-10-26] MEDS ORDERED: TRAM50 PO (14:34)
== END 2024-10-26 14:49 | disposition home or self-care (01) ==
LOC: ER 09:31
PROVIDERS: Student in an Organized Health Care Education/Training Program
DX: M54.2 Cervicalgia (principal); Z79.899 Other long term (current) drug therapy; F17.210 Nicotine dependence, cigarettes, uncomplicated
CPT/HCPCS: 70450; 72125; 80053; 85025; 99284-25